=== PATIENT | male | born 1955 | race Two or more races ===

== ENCOUNTER 2019-03-13 15:02 | Emergency (ER) | payer MEDICAID ==
[~2019-03-13] VITALS: Ht 180.3 cm; Wt 81.0 kg
[2019-03-13 16:09] LABS: BASOPHILS % 1.1 % (0.0-2.0); HEMATOCRIT. 44.6 % (42.0-52.0); HEMOGLOBIN. 15.2 g/dL (14.0-18.0); MEAN CORPUSCULAR HEMOGLOBIN 31.3 pg (28.0-32.0); MEAN CORPUSCULAR VOLUME 91.7 fL (80.0-94.0); MEAN PLATELET VOLUME 10.8 fl (7.4-10.4); MONOCYTES % 10.2 % (2.0-8.0); NEUTROPHILS % 41.7 % (40.0-76.0); PLATELET 128 x1000/uL (130-400); RED BLOOD CELL COUNT 4.86 mill/uL (4.7-6.1); RED CELL DISTRIBUTION WIDTH 14.3 % (11.6-14.6)
[2019-03-13 16:12] LABS: CHLORIDE 112 mEq/L (98-107)
[2019-03-13 16:18] LABS: D-DIMER < 0.19 mg/L FEU (<0.50); INR 1.3; PROTHROMBIN TIME 13.4 sec (9.6-11.0)
[2019-03-13] MEDS ORDERED: ENOXAPARIN 80MG/0.8ML SYR SUBCUT ONE (16:30)
[2019-03-13] MEDS ORDERED: IOHEXOL-350 100 ML BOTTLE ONE (17:34)
[2019-03-13] MEDS ORDERED: HYDROCODONE/ACETAMINOPHEN 5/325MG TABLET PO PRN (20:00)
[2019-03-13] MEDS ORDERED: DOCUSATE SODIUM 100MG CAPSULE PO PRN (20:00)
[2019-03-13] MEDS ORDERED: ACETAMINOPHEN 325MG TABLET PO PRN (20:00)
[2019-03-13] MEDS ORDERED: IPRATROPIUM/ALBUTEROL 0.5-3(2.5)MG/3ML NEB INH PRN (20:00)
[2019-03-13] MEDS ORDERED: ONDANSETRON HCL 4MG/2ML INJ IV PRN (20:00)
[2019-03-13] MEDS ORDERED: MORPHINE SULFATE 2 MG/ML CPJ (NOT FOR IM USE) IV PRN (20:00)
[2019-03-13] MEDS ORDERED: CLONIDINE 0.1MG TABLET PO PRN (20:00)
[2019-03-13 20:18] VITALS: BP 129/75
[2019-03-14] MEDS ORDERED: ASPIRIN 81MG EC TABLET PO SCH (09:00)
[2019-03-14] MEDS ORDERED: AMLODIPINE 10MG TABLET PO SCH (09:00)
== END 2019-03-13 21:25 | disposition left against medical advice (07) ==
LOC: ER 15:02 → EDBEDREQ 16:44 → EDBEDREQTM 16:44 → CANRESERV 20:14 → ENRESERV 20:14 → ER 21:25 → CANBEDREQ 03-14 08:32
DX: R79.1 Abnormal coagulation profile (principal); R07.81 Pleurodynia; I10 Essential (primary) hypertension; I25.2 Old myocardial infarction; I25.10 Atherosclerotic heart disease of native coronary artery without angina pectoris; E78.00 Pure hypercholesterolemia, unspecified; F17.200 Nicotine dependence, unspecified, uncomplicated; Z98.890 Other specified postprocedural states
CPT/HCPCS: 36415; 71045; 71275; 80053; 83880; 84484; 85025; 85379; 85610; 93005; 99284; J1650; Q9967